=== PATIENT | male | born 1965 | race Native Hawaiian/Other Pacific Islander ===

== ENCOUNTER 2020-04-13 19:37 | Emergency (ER) | payer OTHER | END 2020-04-13 22:56 | disposition other institution (70) | LOC: ED 19:37 | DX: Z02.89 Encounter for other administrative examinations (principal) ==

== ENCOUNTER 2020-04-13 19:37 | Emergency (ER) | payer SELFPAY ==
[~2020-04-13] VITALS: Ht 162.6 cm; Wt 68.0 kg
[2020-04-13 19:42] VITALS: Ht 162.6 cm; Wt 68.0 kg
[2020-04-13 20:30] LABS: BASOPHIL % 0.8 % (0-2); PLATELET COUNT 240 x10^3mcL (130-400); RED CELL DISTRIBUTION WIDTH 12.1 % (11.5-14.5)
[2020-04-13 21:00] LABS: ALBUMIN 4.3 g/dL (3.4-5.0); ALKALINE PHOSPHATASE 203 U/L (46-116); ALT/SGPT 26 U/L (16-63); AST/SGOT 14 U/L (15-37); BILIRUBIN TOTAL 0.73 mg/dL (0.20-1.00); CARBON DIOXIDE 23.5 mmol/L (21-32); CHLORIDE SERUM 95 mmol/L (98-107); CREATININE SERUM 1.2 mg/dL (0.7-1.3); GFR1 > 60 mL/min; POTASSIUM SERUM 4.1 mmol/L (3.5-5.1); SODIUM SERUM 134 mmol/L (136-145); TOTAL PROTEIN, SERUM 7.3 g/dL (6.4-8.2)
[2020-04-13 21:05] LABS: GLUCOSE SERUM 554 mg/dL (74-106)
[2020-04-13 21:23] LABS: AMPHETAMINE QUAL UR NONE DETECTED (See below)
[2020-04-13 22:56] VITALS: BP 140/82
== END 2020-04-13 22:56 | disposition other institution (70) ==
LOC: ED 19:37
PROVIDERS: Emergency Medicine
DX: E11.65 Type 2 diabetes mellitus with hyperglycemia (principal); G89.29 Other chronic pain; M54.9 Dorsalgia, unspecified
CPT/HCPCS: 82962; J7030; Q0092